=== PATIENT | female | born 1990 | race Caucasian/White ===

== ENCOUNTER 2023-07-30 14:55 | Emergency (ER) | payer OTHER ==
[~2023-07-30] VITALS: Ht 163.8 cm; Wt 82.1 kg
[2023-07-30 15:00] VITALS: BP 116/77; PULSE 77; RESP 20; TEMP 98; O2SAT 99
[2023-07-30] MEDS ORDERED: IBUP-2218 PO (15:55)
[2023-07-30] MEDS ORDERED: BENZ-300 PO (15:55)
[2023-07-30] MEDS: IBUPROFEN 800 MG TAB PO ONE (16:08)
[2023-07-30 16:11] VITALS: BP 116/77; PULSE 77; RESP 20; TEMP 98; O2SAT 99
[2023-07-30 17:42] LABS: FLU A ANTIGEN negative (NEGATIVE); FLU B ANTIGEN negative (NEGATIVE)
== END 2023-07-30 16:12 | disposition home or self-care (01) ==
LOC: MED 14:55
DX: J02.9 Acute pharyngitis, unspecified (principal); R51.9 Headache, unspecified; Z20.822 Contact with and (suspected) exposure to COVID-19; Z79.899 Other long term (current) drug therapy
CPT/HCPCS: 81002; 81025; 87081; 99283

== ENCOUNTER 2023-08-13 19:54 | Emergency (ER) | payer OTHER ==
[~2023-08-13] VITALS: Ht 157.5 cm; Wt 81.6 kg
[~2023-08-13 19:54] MED LIST: BENZ-300 PO; IBUP-2218 PO
[2023-08-13 20:23] VITALS: BP 121/82; PULSE 69; RESP 16; TEMP 98.3; O2SAT 100
[2023-08-13 21:31] LABS: BASOPHILS % (AUTO) 0.3 % (0.0-2.0); EOSINOPHILS # (AUTO) 0.1 K/uL (0-0.4); HEMATOCRIT 38.5 % (36-48); LYMPHOCYTES # (AUTO) 3.5 K/uL (2.5-16.5); LYMPHOCYTES % (AUTO) 31.9 % (20.5-51.1); MEAN CORPUSCULAR HEMOGLOBIN 28 pg (27-31); MEAN CORPUSCULAR HGB CONC 34 g/dL (33-37); MEAN CORPUSCULAR VOLUME 83.7 fL (80-94); MONOCYTES # (AUTO) 0.6 K/uL (0.8-1.0); MONOCYTES % (AUTO) 5.3 % (1.7-9.3); NEUTROPHILS # (AUTO) 6.7 K/uL (1.8-7.7); NEUTROPHILS % (AUTO) 61.5 % (42.2-75.2); PLATELET COUNT (AUTO) 236 K/uL (140-450); RED CELL DISTRIBUTION WIDTH 14.1 % (11.6-13.7)
[2023-08-13] MEDS: KETOROLAC 30 MG/ML VIAL IM ONE (21:32)
[2023-08-13 21:42] LABS: CALCIUM 9.1 mg/dL (8.5-10.1); CREATININE 0.8 mg/dL (0.6-1.3)
[2023-08-13] MEDS ORDERED: IBUP-2213 PO (22:22)
[2023-08-13 22:28] VITALS: BP 118/82; PULSE 70; RESP 16; TEMP 98; O2SAT 100
== END 2023-08-13 22:28 | disposition home or self-care (01) ==
LOC: MED 19:54
DX: R07.89 Other chest pain (principal); M79.602 Pain in left arm; R13.10 Dysphagia, unspecified; Z79.1 Long term (current) use of non-steroidal anti-inflammatories (NSAID); Z79.899 Other long term (current) drug therapy
CPT/HCPCS: 36415; 70360; 71045; 80048; 84484; 85025; 93005; 96372; 99285; J1885

== ENCOUNTER 2023-08-19 12:32 | Emergency (ER) | payer OTHER ==
[~2023-08-19] VITALS: Ht 167.6 cm; Wt 81.6 kg
[~2023-08-19 12:32] MED LIST changes: +IBUP-2213 PO
[2023-08-19 12:34] VITALS: BP 136/89; PULSE 71; RESP 16; TEMP 98; O2SAT 100
[2023-08-19 12:42] VITALS: TEMP 98
[2023-08-19] MEDS: LORazepam 1 MG TAB PO ONE (13:33)
[2023-08-19] MEDS: KETOROLAC 30 MG/ML VIAL IM ONE (13:47)
[2023-08-19] MEDS ORDERED: LORA-476 PO (14:12)
[2023-08-19 14:19] VITALS: BP 109/80; PULSE 74; RESP 17; O2SAT 98
== END 2023-08-19 14:19 | disposition home or self-care (01) ==
LOC: MED 12:32
DX: F41.9 Anxiety disorder, unspecified (principal); R07.89 Other chest pain; Z79.1 Long term (current) use of non-steroidal anti-inflammatories (NSAID); Z79.899 Other long term (current) drug therapy
CPT/HCPCS: 81025; 93005; 96372; 99283; J1885